=== PATIENT | male | born 1955 | race Caucasian/White ===

== ENCOUNTER 2020-02-25 17:38 | Emergency (ER) | payer MEDICARE ==
[2020-02-25 18:00] VITALS: BP 180/88
[2020-02-25] MEDS ORDERED: Acetaminophen 325 MG Tab PO ONE (18:37)
--- NOTE | 2020-02-25 18:43 | EDM.PDOC ---
<LizzAfia english - Last Filed: 02/25/20 18:36> ED HPI GENERAL MEDICAL PROBLEM - General Chief Complaint: Respiratory Problem Stated Complaint: COUGH,FEVER,SOB, Time Seen by Provider: 02/25/20 18:14 Source of Information: Reports: Patient History Limitations: Reports: Other (Poor historian) - History of Present Illness INITIAL COMMENTS - FREE TEXT/NARRATIVE: Peter is here for complaints of a dry nonproductive cough and intermittent SOB. He stated the symptoms started yesterday after he mowed push mowed his yard yesterday. His cough is worse today. He states he had a fever today. He did not take his temperature but felt like he was burning up. He took 4 Sudafed and some NyQuil, which helped. He had chills, which started at 13:00 today. He has general body aches. He did have a FERNANDO about three hours ago and took 3 ASA which relieved the pain. He states he feels somewhat better since coming to the hospital. He states he does have a sore throat and a FERNANDO with a pain of 5/10. Generalized Pain Score (Numeric/FACES): 4 - Related Data Allergies Allergy/AdvReac Type Severity Reaction Status Date / Time Penicillins Allergy Severe Rash Verified 02/25/20 18:00 amoxicillin AdvReac Severe Tachycardia Verified 02/25/20 18:00 Home Meds: Home Meds Hydrochlorothiazide/Lisinopril [Lisinopril-HCTZ 20-25 MG] 20 - 25 mg PO DAILY [History] Latanoprost [Xalatan] 1 drop EYEBOTH BEDTIME 01/29/15 [History] timoloL maleate [Timoptic 0.5% Ophth Soln] 1 drop EYEBOTH QAM 01/29/15 [History] Clindamycin HCl 450 mg PO TID #90 capsule 02/25/20 [Rx] atorvaSTATin [Lipitor] 20 mg PO BEDTIME 02/25/20 [History] Past Medical History HEENT History: Reports: Cataract, Glaucoma, Impaired Vision Cardiovascular History: Reports: Hypertension Gastrointestinal History: Reports: None Genitourinary History: Reports: None Neurological History: Reports: None Endocrine/Metabolic History: Reports: Obesity/BMI 30+ - Past Surgical History HEENT Surgical History: Reports: Cataract Surgery Cardiovascular Surgical History: Reports: Other (See Below) Social & Family History - Family History Oncologic: Reports: Lung ED ROS GENERAL - Review of Systems Review Of Systems: Comprehensive ROS is negative, except as noted in HPI. ED EXAM, GENERAL - Physical Exam Exam: See Below Exam Limited By: No Limitations General Appearance: Alert, WD/WN, No Apparent Distress Throat/Mouth: Normal Inspection, Normal Lips, Normal Teeth, Normal Gums, Normal Oropharynx, Normal Voice, No Airway Compromise Head: Atraumatic, Normocephalic Neck: Normal Inspection, Supple, Non-Tender, Full Range of Motion Respiratory/Chest: No Respiratory Distress, Lungs Clear, No Accessory Muscle Use , Decreased Breath Sounds Cardiovascular: Normal Peripheral Pulses, Regular Rate, Rhythm. No: No Edema GI/Abdominal: Normal Bowel Sounds, Soft, Non-Tender, No Organomegaly, No Distention, No Abnormal Bruit, No Mass Extremities: Other (left lower leg with erythema, edma, and warmth. He has two scabbed areas. No drainage noted.) Neurological: Alert, Oriented Psychiatric: Normal Affect, Normal Mood Skin Exam: Other (left lower leg with erythema, edma, and warmth. He has two scabbed areas. No drainage noted.) Course - Vital Signs Last Recorded V/S: Last Vital Signs Temp 96.9 F 02/25/20 17:54 Pulse 88 02/25/20 17:54 Resp 20 02/25/20 17:54 BP 180/88 H 02/25/20 17:54 Pulse Ox 95 02/25/20 17:54 - Orders/Labs/Meds Orders: Active Orders 24 hr Category Date Time Status CORONAVIRUS COVID-19 PCR PHL Stat Lab 02/25/20 18:35 Ordered CULTURE STREP A CONFIRMATION [RM] Stat Lab 02/25/20 18:36 Results STREP SCRN A RAPID W CULT CONF [RM] Stat Lab 02/25/20 18:36 Results Meds: Medications Discontinued Medications Generic Name Dose Route Start Last Admin Trade Name Freq PRN Reason Stop Dose Admin Acetaminophen 975 mg 02/25/20 18:37 02/25/20 19:01 Tylenol PO 02/25/20 18:38 975 mg ONETIME ONE Administration - Re-Assessments/Exams Free Text/Narrative Re-Assessment/Exam: 02/25/20 18:57 Peter is a 64 year old male, who presents for for complaints of a dry nonproductive cough and intermittent SOB. He stated the symptoms started yesterday after he mowed push mowed his yard yesterday. His cough is worse today. He states he had a fever today. He did not take his temperature but felt like he was burning up. He took 4 Sudafed and some NyQuil, which helped. He had chills, which started at 13:00 today. He has general body aches. He did have a FERNANDO about three hours ago and took 3 ASA which relieved the pain. He states he feels somewhat better since coming to the hospital. He states he does have a sore throat and a FERNANDO with a pain of 5/10. COVID-19 swab and strep swab to be collected. Tylenol 975 mg will be ordered for his FERNANDO and sore throat. Noted left lower leg with erythema, edema, and warmth during exam. He has two scabbed areas. No drainage noted. 02/25/20 18:59 Departure - Departure Disposition: Home, Self-Care 01 Clinical Impression: Bilateral cellulitis of lower leg - Discharge Information Prescriptions: Clindamycin HCl 450 mg PO TID #90 capsule Referrals: Jim Redding MD [Primary Care Provider] - 1 Week Forms: ED Department Discharge Additional Instructions: Take the clindamycin 3 pills 3 times per day for 10 days. Please return if you are worse. Sepsis Event Note - Evaluation Sepsis Screening Result: No Definite Risk - Focused Exam Vital Signs: Vital Signs Temp Pulse Resp BP Pulse Ox 02/25/20 17:54 96.9 F 88 20 180/88 H 95 Date Exam was Performed: 02/25/20 Time Exam was Performed: 18:36 <Oscar Patterson - Last Filed: 02/25/20 19:27> Course - Re-Assessments/Exams Free Text/Narrative Re-Assessment/Exam: 02/25/20 19:22 I examined the patient myself and I agree with Kayli's assessment and plan. I will get him on some clindamycin for the cellulitis to his legs. Departure - Departure Time of Disposition: 19:25 Condition: Good - Discharge Information *PRESCRIPTION DRUG MONITORING PROGRAM REVIEWED*: Not Applicable *COPY OF PRESCRIPTION DRUG MONITORING REPORT IN PATIENT NOA: Not Applicable Sepsis Event Note - Focused Exam Date Exam was Performed: 02/25/20 Time Exam was Performed: 19:22
--- NOTE | 2020-02-25 19:21 | CR ---
Chest: Portable supine view of the dome of the chest was obtained. Comparison: No prior chest imaging is available. Cardiac silhouette is enlarged. Upper mediastinum is enlarged most likely relating to portable and supine technique. Lungs are clear with no acute parenchymal change being seen. Bony structures are grossly intact. Impression: 1. Cardiomegaly. 2. Nothing acute is definitely appreciated. Diagnostic code #2 This report was dictated in MDT
[2020-02-25 20:50] VITALS: PULSE 82
== END 2020-02-25 20:00 | disposition home or self-care (01) ==
LOC: JD.ED 17:38
DX: L03.116 Cellulitis of left lower limb (principal); L03.115 Cellulitis of right lower limb; I10 Essential (primary) hypertension; E66.9 Obesity, unspecified; Z68.44 Body mass index [BMI] 60.0-69.9, adult; Z88.0 Allergy status to penicillin; Z88.1 Allergy status to other antibiotic agents; Z79.899 Other long term (current) drug therapy
CPT/HCPCS: 71045; 87081; 87430; 99285; A9270; U0002; 99282

== ENCOUNTER 2023-06-17 01:04 | Inpatient (IN) | payer MEDICARE ==
[2023-06-17 02:17] LABS: BASOPHILS ABSOLUTE AUTO 0.1 K/mm3 (0.0-0.2); BASOPHILS PERCENT AUTO 0.7 % (0.0-1.0); EOSINOPHILS ABSOLUTE AUTO 0.3 K/mm3 (0.0-0.4); EOSINOPHILS PERCENT AUTO 3.2 % (0.0-6.0); HEMATOCRIT 40.5 % (42.0-52.0); HEMOGLOBIN 12.6 gm/dl (14.0-18.0); IMMATURE GRAN ABSOLUTE AUTO 0.04 K/mm3 (0.00-0.05); IMMATURE GRAN PERCENT AUTO 0.5 % (0.0-0.4); LYMPHOCYTES ABSOLUTE AUTO 1.3 K/mm3 (1.0-4.8); LYMPHOCYTES PERCENT AUTO 15.2 % (24.0-44.0); MEAN CORPUSCULAR HEMOGLOBIN 26.3 pg (28.0-32.0); MEAN CORPUSCULAR HGB CONC 31.1 g/dl (32.0-36.0); MEAN CORPUSCULAR VOLUME 84.4 fl (83.0-99.0); MEAN PLATELET VOLUME 9.9 fl (9.4-12.4); MONOCYTES ABSOLUTE AUTO 0.6 K/mm3 (0.0-0.8); MONOCYTES PERCENT AUTO 7.3 % (0.0-8.0); NEUTROPHILS ABSOLUTE AUTO 6.5 K/mm3 (1.8-7.7); NEUTROPHILS PERCENT AUTO 73.1 % (41.0-71.0); PLATELET COUNT,PLT 234 K/mm3 (150-400); WHITE BLOOD CELL COUNT,WBC 8.82 K/mm3 (3.9-11.3)
[2023-06-17 02:47] LABS: A/G RATIO 0.8 (1-2); ALBUMIN 3.2 g/dl (3.4-5.0); ANION GAP 11.9 (5-15); BILIRUBIN TOTAL 0.4 mg/dL (0.2-1.0); BUN/CREATININE RATIO 25.8 (14-18); CALCIUM 8.6 mg/dL (8.5-10.1); CREATININE 1.2 mg/dL (0.7-1.3); EST CRCL DRUG DOSING (CG) 51.69 mL/min; POTASSIUM,K 3.9 mEq/L (3.5-5.1); PROTEIN TOTAL,TP 7.1 g/dl (6.4-8.2)
[2023-06-17] MEDS ORDERED: Acetaminophen 325 MG Tab PO ONE (03:11)
[2023-06-17] MEDS ORDERED: Ibuprofen 600 MG Tab PO ONE (03:11)
[2023-06-17] MEDS ORDERED: oxyCODONE 5 MG Tab PO PRN (14:52)
[2023-06-17] MEDS ORDERED: Furosemide 40 MG/4 ML VIAL IVPUSH SCH (15:00)
[2023-06-17] MEDS ORDERED: cefTRIAXone 1 GM in Sodium Chloride 0.9% 100 ML IV SCH (15:00)
[2023-06-17] MEDS: Enoxaparin 40 MG/0.4 ML Syringe SUBCUT SCH (18:54)
[2023-06-17] MEDS: Furosemide 40 MG/4 ML VIAL IVPUSH SCH (18:57)
[2023-06-17] MEDS: Insulin Lispro 100 Unit/ML 3 ML KwikPen SUBCUT SCH ×2 (19:02→21:09)
[2023-06-17] MEDS ORDERED: BIMATOPROST 0.01% EYEBOTH SCH (21:00)
[2023-06-17] MEDS ORDERED: Latanoprost 0.005% Ophth Soln 2.5 ML Bottle EYEBOTH SCH ×2 (21:00)
[2023-06-17] MEDS ORDERED: Non-Formulary Medication 1 Each (Atorvastatin 10 MG Tablet) PO SCH (21:00)
[2023-06-17] MEDS: metFORMIN 500 MG Tab PO SCH (21:53)
[2023-06-17] MEDS: Rosuvastatin 10 MG Tab PO SCH (21:53)
[2023-06-17] MEDS: Acetaminophen 325 MG Tab PO PRN (21:53)
[2023-06-17] MEDS: Latanoprost 0.005% Ophth Soln 2.5 ML Bottle EYEBOTH SCH (21:55)
[2023-06-18] MEDS: oxyCODONE 5 MG Tab PO PRN ×2 (01:14→23:16)
[2023-06-18] MEDS: Enoxaparin 40 MG/0.4 ML Syringe SUBCUT SCH ×2 (04:07→15:29)
[2023-06-18 05:34] LABS: BASOPHILS PERCENT AUTO 0.5 % (0.0-1.0); EOSINOPHILS ABSOLUTE AUTO 0.2 K/mm3 (0.0-0.4); EOSINOPHILS PERCENT AUTO 2.6 % (0.0-6.0); HEMATOCRIT 40.5 % (42.0-52.0); HEMOGLOBIN 12.6 gm/dl (14.0-18.0); IMMATURE GRAN ABSOLUTE AUTO 0.01 K/mm3 (0.00-0.05); IMMATURE GRAN PERCENT AUTO 0.1 % (0.0-0.4); LYMPHOCYTES ABSOLUTE AUTO 1.5 K/mm3 (1.0-4.8); LYMPHOCYTES PERCENT AUTO 18.9 % (24.0-44.0); MEAN CORPUSCULAR HEMOGLOBIN 26.6 pg (28.0-32.0); MEAN CORPUSCULAR HGB CONC 31.1 g/dl (32.0-36.0); MEAN CORPUSCULAR VOLUME 85.4 fl (83.0-99.0); MEAN PLATELET VOLUME 10.1 fl (9.4-12.4); MONOCYTES ABSOLUTE AUTO 0.5 K/mm3 (0.0-0.8); MONOCYTES PERCENT AUTO 6.8 % (0.0-8.0); NEUTROPHILS ABSOLUTE AUTO 5.6 K/mm3 (1.8-7.7); NEUTROPHILS PERCENT AUTO 71.1 % (41.0-71.0); PLATELET COUNT,PLT 227 K/mm3 (150-400); RED BLOOD CELL COUNT 4.74 M/mm3 (4.52-5.90); WHITE BLOOD CELL COUNT,WBC 7.83 K/mm3 (3.9-11.3)
[2023-06-18] MEDS: Furosemide 40 MG/4 ML VIAL IVPUSH SCH ×2 (05:37→15:29)
[2023-06-18 05:42] LABS: A/G RATIO 0.7 (1-2); ALBUMIN 2.9 g/dl (3.4-5.0); BILIRUBIN TOTAL 0.4 mg/dL (0.2-1.0); CALCIUM 8.7 mg/dL (8.5-10.1); CREATININE 0.9 mg/dL (0.7-1.3); EST CRCL DRUG DOSING (CG) 69.27 mL/min; MAGNESIUM 1.9 mg/dL (1.8-2.4); PROTEIN TOTAL,TP 6.8 g/dl (6.4-8.2)
[2023-06-18] MEDS: Insulin Lispro 100 Unit/ML 3 ML KwikPen SUBCUT SCH ×4 (07:28→23:08)
[2023-06-18] MEDS ORDERED: Hydrochlorothiazide 25 MG Tab PO SCH (09:00)
[2023-06-18] MEDS: Acetaminophen 325 MG Tab PO PRN ×2 (09:53→20:25)
[2023-06-18] MEDS: metFORMIN 500 MG Tab PO SCH ×2 (09:53→20:21)
[2023-06-18] MEDS: Lisinopril 20 MG Tab PO SCH (09:53)
[2023-06-18] MEDS ORDERED: Bisacodyl 5 MG Tab PO PRN (18:10)
[2023-06-18] MEDS: Docusate Sodium 100 MG Cap PO SCH (20:21)
[2023-06-18] MEDS: Latanoprost 0.005% Ophth Soln 2.5 ML Bottle EYEBOTH SCH (20:21)
[2023-06-18] MEDS: Rosuvastatin 10 MG Tab PO SCH (20:21)
[2023-06-18] MEDS: cefTRIAXone 1 GM in Sodium Chloride 0.9% 100 ML IV SCH (20:22)
[2023-06-18] MEDS: Polyethylene Glycol 3350 Powder 17 GM Packet PO PRN (20:32)
[2023-06-19] MEDS: Docusate Sodium 100 MG Cap PO SCH ×3 (00:16→22:19)
[2023-06-19] MEDS: Enoxaparin 40 MG/0.4 ML Syringe SUBCUT SCH ×2 (03:12→15:35)
[2023-06-19] MEDS: Insulin Lispro 100 Unit/ML 3 ML KwikPen SUBCUT SCH ×4 (07:30→22:21)
[2023-06-19] MEDS: Acetaminophen 325 MG Tab PO PRN ×2 (07:53→23:02)
[2023-06-19] MEDS: Furosemide 40 MG/4 ML VIAL IVPUSH SCH ×2 (07:55→15:35)
[2023-06-19] MEDS: Lisinopril 20 MG Tab PO SCH (10:10)
[2023-06-19] MEDS: metFORMIN 500 MG Tab PO SCH ×2 (10:10→22:19)
[2023-06-19] MEDS ORDERED: Magnesium Hydroxide 400 MG/5 ML Susp 30 ML Cup PO ONE (18:11)
[2023-06-19] MEDS: cefTRIAXone 1 GM in Sodium Chloride 0.9% 100 ML IV SCH (22:18)
[2023-06-19] MEDS: Latanoprost 0.005% Ophth Soln 2.5 ML Bottle EYEBOTH SCH (22:18)
[2023-06-19] MEDS: Rosuvastatin 10 MG Tab PO SCH (22:19)
[2023-06-20] MEDS: oxyCODONE 5 MG Tab PO PRN ×3 (00:52→19:17)
[2023-06-20] MEDS: Enoxaparin 40 MG/0.4 ML Syringe SUBCUT SCH ×2 (03:57→14:25)
[2023-06-20 05:37] LABS: BASOPHILS PERCENT AUTO 0.5 % (0.0-1.0); EOSINOPHILS ABSOLUTE AUTO 0.3 K/mm3 (0.0-0.4); EOSINOPHILS PERCENT AUTO 3.6 % (0.0-6.0); HEMATOCRIT 41.5 % (42.0-52.0); HEMOGLOBIN 12.7 gm/dl (14.0-18.0); IMMATURE GRAN ABSOLUTE AUTO 0.02 K/mm3 (0.00-0.05); IMMATURE GRAN PERCENT AUTO 0.2 % (0.0-0.4); LYMPHOCYTES ABSOLUTE AUTO 1.5 K/mm3 (1.0-4.8); LYMPHOCYTES PERCENT AUTO 17.9 % (24.0-44.0); MEAN CORPUSCULAR HEMOGLOBIN 26.2 pg (28.0-32.0); MEAN CORPUSCULAR HGB CONC 30.6 g/dl (32.0-36.0); MEAN CORPUSCULAR VOLUME 85.6 fl (83.0-99.0); MEAN PLATELET VOLUME 10.3 fl (9.4-12.4); MONOCYTES ABSOLUTE AUTO 0.8 K/mm3 (0.0-0.8); MONOCYTES PERCENT AUTO 9.2 % (0.0-8.0); NEUTROPHILS ABSOLUTE AUTO 5.9 K/mm3 (1.8-7.7); NEUTROPHILS PERCENT AUTO 68.6 % (41.0-71.0); PLATELET COUNT,PLT 224 K/mm3 (150-400); RED BLOOD CELL COUNT 4.85 M/mm3 (4.52-5.90); WHITE BLOOD CELL COUNT,WBC 8.59 K/mm3 (3.9-11.3)
[2023-06-20 06:00] LABS: A/G RATIO 0.7 (1-2); ALBUMIN 2.8 g/dl (3.4-5.0); BILIRUBIN TOTAL 0.3 mg/dL (0.2-1.0); C-REACTIVE PROTEIN 2.2 mg/dL (<1.0); CALCIUM 8.7 mg/dL (8.5-10.1); EST CRCL DRUG DOSING (CG) 62.03 mL/min; PROTEIN TOTAL,TP 6.9 g/dl (6.4-8.2)
[2023-06-20] MEDS: Lisinopril 20 MG Tab PO SCH (08:13)
[2023-06-20] MEDS: metFORMIN 500 MG Tab PO SCH (08:13)
[2023-06-20] MEDS: Insulin Lispro 100 Unit/ML 3 ML KwikPen SUBCUT SCH ×4 (08:14→21:56)
[2023-06-20] MEDS: Furosemide 40 MG/4 ML VIAL IVPUSH SCH ×2 (08:14→14:24)
[2023-06-20] MEDS: Docusate Sodium 100 MG Cap PO SCH ×2 (08:14→20:26)
[2023-06-20 10:28] LABS: HEMOGLOBIN A1C 6.5 %
[2023-06-20] MEDS: Polyethylene Glycol 3350 Powder 17 GM Packet PO PRN (10:41)
[2023-06-20] MEDS: amLODIPine 5 MG Tab PO SCH (12:19)
[2023-06-20] MEDS: Acetaminophen 325 MG Tab PO PRN (12:23)
[2023-06-20] MEDS ORDERED: Furosemide 40 MG/4 ML VIAL IVPUSH SCH (14:00)
[2023-06-20] MEDS: Nystatin Topical Powder 15 GM Bottle TOP PRN (14:11)
[2023-06-20] MEDS: Doxycycline 100 MG in Sodium Chloride 0.9% 100 ML IV SCH (20:24)
[2023-06-20] MEDS: Rosuvastatin 10 MG Tab PO SCH (20:26)
[2023-06-20] MEDS: Latanoprost 0.005% Ophth Soln 2.5 ML Bottle EYEBOTH SCH (20:26)
[2023-06-20] MEDS: Dorzolamide/Timolol 2%-0.5% Ophth Soln 10 ML Bottle EYEBOTH SCH (20:26)
[2023-06-20] MEDS ORDERED: Non-Formulary Medication 1 Each (Bimatoprost 2.5 ML Bottle) EYEBOTH SCH (21:00)
[2023-06-21] MEDS: Acetaminophen 325 MG Tab PO PRN ×3 (00:41→17:36)
[2023-06-21] MEDS: Enoxaparin 40 MG/0.4 ML Syringe SUBCUT SCH ×2 (03:09→14:18)
[2023-06-21] MEDS: Furosemide 40 MG/4 ML VIAL IVPUSH SCH ×2 (05:25→14:16)
[2023-06-21 07:02] LABS: BUN/CREATININE RATIO 32.2 (14-18); C-REACTIVE PROTEIN 2.9 mg/dL (<1.0); CALCIUM 9.2 mg/dL (8.5-10.1); CREATININE 0.9 mg/dL (0.7-1.3); EST CRCL DRUG DOSING (CG) 68.92 mL/min; MAGNESIUM 1.8 mg/dL (1.8-2.4)
[2023-06-21] MEDS: Insulin Lispro 100 Unit/ML 3 ML KwikPen SUBCUT SCH ×4 (07:46→21:45)
[2023-06-21 08:04] LABS: HEMOGLOBIN 12.4 gm/dl (14.0-18.0); RED BLOOD CELL COUNT 4.66 M/mm3 (4.52-5.90)
[2023-06-21 08:05] LABS: BASOPHILS PERCENT AUTO 0.5 % (0.0-1.0); EOSINOPHILS ABSOLUTE AUTO 0.4 K/mm3 (0.0-0.4); EOSINOPHILS PERCENT AUTO 4.7 % (0.0-6.0); HEMATOCRIT 39.1 % (42.0-52.0); IMMATURE GRAN ABSOLUTE AUTO 0.02 K/mm3 (0.00-0.05); IMMATURE GRAN PERCENT AUTO 0.3 % (0.0-0.4); LYMPHOCYTES ABSOLUTE AUTO 1.2 K/mm3 (1.0-4.8); LYMPHOCYTES PERCENT AUTO 16.3 % (24.0-44.0); MEAN CORPUSCULAR HEMOGLOBIN 26.6 pg (28.0-32.0); MEAN CORPUSCULAR HGB CONC 31.7 g/dl (32.0-36.0); MEAN CORPUSCULAR VOLUME 83.9 fl (83.0-99.0); MONOCYTES ABSOLUTE AUTO 0.6 K/mm3 (0.0-0.8); MONOCYTES PERCENT AUTO 7.9 % (0.0-8.0); NEUTROPHILS ABSOLUTE AUTO 5.3 K/mm3 (1.8-7.7); NEUTROPHILS PERCENT AUTO 70.3 % (41.0-71.0); PLATELET COUNT,PLT 223 K/mm3 (150-400)
[2023-06-21] MEDS: Doxycycline 100 MG in Sodium Chloride 0.9% 100 ML IV SCH ×2 (08:11→21:33)
[2023-06-21] MEDS: Dorzolamide/Timolol 2%-0.5% Ophth Soln 10 ML Bottle EYEBOTH SCH ×2 (08:12→21:34)
[2023-06-21] MEDS: Docusate Sodium 100 MG Cap PO SCH ×2 (08:12→21:28)
[2023-06-21] MEDS: amLODIPine 5 MG Tab PO SCH (08:12)
[2023-06-21] MEDS: oxyCODONE 5 MG Tab PO PRN ×2 (08:20→15:27)
[2023-06-21] MEDS: Nystatin Topical Powder 15 GM Bottle TOP PRN (08:26)
[2023-06-21] MEDS ORDERED: Benzocaine/Cetylpyridinium/Menthol Lozenge MUCMEM PRN (09:13)
[2023-06-21] MEDS ORDERED: Acetaminophen/Butalbital/Caffeine 325-50-40 MG Tab PO ONE (09:30)
[2023-06-21] MEDS ORDERED: Diltiazem 25 MG/5 ML SDV IVPUSH ONE ×2 (15:00→16:15)
[2023-06-21] MEDS: Metoprolol Tartrate 25 MG Tab PO SCH ×2 (15:29→21:28)
[2023-06-21] MEDS ORDERED: Diltiazem 125 MG in Sodium Chloride 0.9% 100 ML IV SCH (16:00)
[2023-06-21] MEDS ORDERED: Magnesium Sulfate/Water 2 GM in Premix Bag 1 BAG IV ONE (16:30)
[2023-06-21] MEDS: Apixaban 5 MG Tab PO SCH (21:28)
[2023-06-21] MEDS: Rosuvastatin 10 MG Tab PO SCH (21:33)
[2023-06-21] MEDS: Latanoprost 0.005% Ophth Soln 2.5 ML Bottle EYEBOTH SCH (21:33)
[2023-06-22] MEDS: Metoprolol Tartrate 25 MG Tab PO SCH (03:29)
[2023-06-22 05:30] LABS: BASOPHILS ABSOLUTE AUTO 0.1 K/mm3 (0.0-0.2); BASOPHILS PERCENT AUTO 0.9 % (0.0-1.0); EOSINOPHILS ABSOLUTE AUTO 0.4 K/mm3 (0.0-0.4); EOSINOPHILS PERCENT AUTO 5.5 % (0.0-6.0); HEMATOCRIT 40.8 % (42.0-52.0); HEMOGLOBIN 13.2 gm/dl (14.0-18.0); IMMATURE GRAN ABSOLUTE AUTO 0.02 K/mm3 (0.00-0.05); IMMATURE GRAN PERCENT AUTO 0.3 % (0.0-0.4); LYMPHOCYTES ABSOLUTE AUTO 1.5 K/mm3 (1.0-4.8); LYMPHOCYTES PERCENT AUTO 21.6 % (24.0-44.0); MEAN CORPUSCULAR HEMOGLOBIN 26.8 pg (28.0-32.0); MEAN CORPUSCULAR HGB CONC 32.4 g/dl (32.0-36.0); MEAN CORPUSCULAR VOLUME 82.9 fl (83.0-99.0); MEAN PLATELET VOLUME 10.4 fl (9.4-12.4); MONOCYTES ABSOLUTE AUTO 0.5 K/mm3 (0.0-0.8); MONOCYTES PERCENT AUTO 7.3 % (0.0-8.0); NEUTROPHILS ABSOLUTE AUTO 4.5 K/mm3 (1.8-7.7); NEUTROPHILS PERCENT AUTO 64.4 % (41.0-71.0); PLATELET COUNT,PLT 227 K/mm3 (150-400); RED BLOOD CELL COUNT 4.92 M/mm3 (4.52-5.90); WHITE BLOOD CELL COUNT,WBC 7.03 K/mm3 (3.9-11.3)
[2023-06-22 05:42] LABS: CALCIUM 9.2 mg/dL (8.5-10.1); EST CRCL DRUG DOSING (CG) 62.03 mL/min; MAGNESIUM 1.9 mg/dL (1.8-2.4)
[2023-06-22] MEDS: Furosemide 40 MG/4 ML VIAL IVPUSH SCH (05:55)
[2023-06-22] MEDS: Insulin Lispro 100 Unit/ML 3 ML KwikPen SUBCUT SCH ×4 (07:50→20:38)
[2023-06-22] MEDS ORDERED: Metoprolol Tartrate 50 MG Tab PO SCH ×2 (08:00→14:00)
[2023-06-22] MEDS: Doxycycline 100 MG in Sodium Chloride 0.9% 100 ML IV SCH (08:02)
[2023-06-22] MEDS: Docusate Sodium 100 MG Cap PO SCH ×2 (08:05→20:37)
[2023-06-22] MEDS: Apixaban 5 MG Tab PO SCH ×2 (08:05→20:37)
[2023-06-22] MEDS: amLODIPine 5 MG Tab PO SCH (08:06)
[2023-06-22] MEDS: Polyethylene Glycol 3350 Powder 17 GM Packet PO SCH (08:07)
[2023-06-22] MEDS: Dorzolamide/Timolol 2%-0.5% Ophth Soln 10 ML Bottle EYEBOTH SCH ×2 (08:07→20:37)
[2023-06-22] MEDS ORDERED: Metoprolol Tartrate 25 MG Tab PO ONE (09:00)
[2023-06-22] MEDS: Nystatin Topical Powder 15 GM Bottle TOP PRN (12:18)
[2023-06-22] MEDS: Acetaminophen 325 MG Tab PO PRN (12:53)
[2023-06-22] MEDS: oxyCODONE 5 MG Tab PO PRN (13:43)
[2023-06-22] MEDS ORDERED: Metoprolol Tartrate 100 MG Tab PO SCH (14:00)
[2023-06-22] MEDS: Metoprolol Tartrate 100 MG Tab PO SCH ×2 (18:05→23:29)
[2023-06-22] MEDS: Latanoprost 0.005% Ophth Soln 2.5 ML Bottle EYEBOTH SCH (20:37)
[2023-06-22] MEDS: Doxycycline Monohydrate 100 MG Cap PO SCH (20:37)
[2023-06-22] MEDS: Rosuvastatin 10 MG Tab PO SCH (20:37)
[2023-06-23] MEDS: Acetaminophen 325 MG Tab PO PRN ×3 (01:51→21:09)
[2023-06-23] MEDS: Metoprolol Tartrate 100 MG Tab PO SCH ×4 (05:16→23:36)
[2023-06-23 05:36] LABS: BASOPHILS ABSOLUTE AUTO 0.1 K/mm3 (0.0-0.2); BASOPHILS PERCENT AUTO 0.7 % (0.0-1.0); EOSINOPHILS ABSOLUTE AUTO 0.3 K/mm3 (0.0-0.4); EOSINOPHILS PERCENT AUTO 3.3 % (0.0-6.0); HEMATOCRIT 42.5 % (42.0-52.0); HEMOGLOBIN 13.6 gm/dl (14.0-18.0); IMMATURE GRAN ABSOLUTE AUTO 0.03 K/mm3 (0.00-0.05); IMMATURE GRAN PERCENT AUTO 0.4 % (0.0-0.4); LYMPHOCYTES ABSOLUTE AUTO 1.6 K/mm3 (1.0-4.8); LYMPHOCYTES PERCENT AUTO 21.4 % (24.0-44.0); MEAN CORPUSCULAR HEMOGLOBIN 26.8 pg (28.0-32.0); MEAN CORPUSCULAR VOLUME 83.8 fl (83.0-99.0); MEAN PLATELET VOLUME 10.6 fl (9.4-12.4); MONOCYTES ABSOLUTE AUTO 0.6 K/mm3 (0.0-0.8); MONOCYTES PERCENT AUTO 7.4 % (0.0-8.0); NEUTROPHILS ABSOLUTE AUTO 5.1 K/mm3 (1.8-7.7); NEUTROPHILS PERCENT AUTO 66.8 % (41.0-71.0); PLATELET COUNT,PLT 246 K/mm3 (150-400); RED BLOOD CELL COUNT 5.07 M/mm3 (4.52-5.90); WHITE BLOOD CELL COUNT,WBC 7.66 K/mm3 (3.9-11.3)
[2023-06-23 05:37] LABS: ANION GAP 9.8 (5-15); BUN/CREATININE RATIO 32.7 (14-18); CALCIUM 9.1 mg/dL (8.5-10.1); CREATININE 1.1 mg/dL (0.7-1.3); EST CRCL DRUG DOSING (CG) 56.39 mL/min; POTASSIUM,K 3.8 mEq/L (3.5-5.1)
[2023-06-23] MEDS: Insulin Lispro 100 Unit/ML 3 ML KwikPen SUBCUT SCH ×4 (07:16→21:11)
[2023-06-23] MEDS: Docusate Sodium 100 MG Cap PO SCH ×2 (08:46→21:09)
[2023-06-23] MEDS: Polyethylene Glycol 3350 Powder 17 GM Packet PO SCH (08:47)
[2023-06-23] MEDS: Furosemide 80 MG Tab PO SCH (08:47)
[2023-06-23] MEDS: amLODIPine 5 MG Tab PO SCH (08:47)
[2023-06-23] MEDS: Apixaban 5 MG Tab PO SCH ×2 (08:47→21:09)
[2023-06-23] MEDS: Doxycycline Monohydrate 100 MG Cap PO SCH ×2 (08:47→21:09)
[2023-06-23] MEDS: Dorzolamide/Timolol 2%-0.5% Ophth Soln 10 ML Bottle EYEBOTH SCH ×2 (09:00→21:10)
[2023-06-23] MEDS ORDERED: Diltiazem IR 30 MG Tab PO SCH (09:00)
[2023-06-23] MEDS ORDERED: Diltiazem IR 60 MG Tab PO SCH ×2 (15:00→21:00)
[2023-06-23] MEDS: Rosuvastatin 10 MG Tab PO SCH (21:09)
[2023-06-23] MEDS: Diltiazem IR 30 MG Tab PO SCH ×2 (21:10→23:36)
[2023-06-23] MEDS: Latanoprost 0.005% Ophth Soln 2.5 ML Bottle EYEBOTH SCH (21:10)
[2023-06-24] MEDS: Diltiazem IR 30 MG Tab PO SCH ×3 (06:35→17:11)
[2023-06-24] MEDS: Insulin Lispro 100 Unit/ML 3 ML KwikPen SUBCUT SCH ×4 (06:35→20:25)
[2023-06-24] MEDS: amLODIPine 5 MG Tab PO SCH (08:11)
[2023-06-24] MEDS: Doxycycline Monohydrate 100 MG Cap PO SCH ×2 (08:11→20:13)
[2023-06-24] MEDS: Docusate Sodium 100 MG Cap PO SCH (08:11)
[2023-06-24] MEDS: Apixaban 5 MG Tab PO SCH ×2 (08:12→20:13)
[2023-06-24] MEDS: Metoprolol Succinate 50 MG Tab.ER PO SCH (08:12)
[2023-06-24] MEDS: Furosemide 80 MG Tab PO SCH (08:12)
[2023-06-24] MEDS: Polyethylene Glycol 3350 Powder 17 GM Packet PO SCH (08:12)
[2023-06-24] MEDS: Dorzolamide/Timolol 2%-0.5% Ophth Soln 10 ML Bottle EYEBOTH SCH ×2 (08:12→20:17)
[2023-06-24] MEDS: Acetaminophen 325 MG Tab PO PRN ×2 (12:43→20:13)
[2023-06-24] MEDS: Latanoprost 0.005% Ophth Soln 2.5 ML Bottle EYEBOTH SCH (20:17)
[2023-06-24] MEDS: Rosuvastatin 10 MG Tab PO SCH (20:18)
[2023-06-25] MEDS: Docusate Sodium 100 MG Cap PO SCH ×3 (00:07→20:02)
[2023-06-25] MEDS: Diltiazem IR 30 MG Tab PO SCH ×5 (00:13→23:06)
[2023-06-25] MEDS: Acetaminophen 325 MG Tab PO PRN ×2 (05:10→14:50)
[2023-06-25] MEDS: Insulin Lispro 100 Unit/ML 3 ML KwikPen SUBCUT SCH ×4 (07:56→20:01)
[2023-06-25] MEDS: Doxycycline Monohydrate 100 MG Cap PO SCH ×2 (08:08→20:02)
[2023-06-25] MEDS: Apixaban 5 MG Tab PO SCH ×2 (08:08→20:02)
[2023-06-25] MEDS: amLODIPine 5 MG Tab PO SCH (08:08)
[2023-06-25] MEDS: Furosemide 80 MG Tab PO SCH (08:08)
[2023-06-25] MEDS: Polyethylene Glycol 3350 Powder 17 GM Packet PO SCH (08:09)
[2023-06-25] MEDS: Metoprolol Succinate 50 MG Tab.ER PO SCH (08:09)
[2023-06-25] MEDS: Dorzolamide/Timolol 2%-0.5% Ophth Soln 10 ML Bottle EYEBOTH SCH ×2 (08:09→20:03)
[2023-06-25] MEDS: Rosuvastatin 10 MG Tab PO SCH (20:02)
[2023-06-25] MEDS: Latanoprost 0.005% Ophth Soln 2.5 ML Bottle EYEBOTH SCH (20:05)
[2023-06-25] MEDS: oxyCODONE 5 MG Tab PO PRN ×2 (20:07→23:09)
[2023-06-25] MEDS: Nystatin Topical Powder 15 GM Bottle TOP PRN (22:20)
[2023-06-26] MEDS: Diltiazem IR 30 MG Tab PO SCH ×4 (06:30→23:25)
[2023-06-26] MEDS: Insulin Lispro 100 Unit/ML 3 ML KwikPen SUBCUT SCH ×4 (06:33→21:06)
[2023-06-26] MEDS: Acetaminophen 325 MG Tab PO PRN ×2 (06:37→21:10)
[2023-06-26] MEDS ORDERED: Ibuprofen 200 MG Tab PO ONE (07:43)
[2023-06-26] MEDS: Dorzolamide/Timolol 2%-0.5% Ophth Soln 10 ML Bottle EYEBOTH SCH ×2 (08:00→21:07)
[2023-06-26] MEDS: Metoprolol Succinate 50 MG Tab.ER PO SCH (08:01)
[2023-06-26] MEDS: Apixaban 5 MG Tab PO SCH ×2 (08:01→21:06)
[2023-06-26] MEDS: Doxycycline Monohydrate 100 MG Cap PO SCH ×2 (08:01→21:07)
[2023-06-26] MEDS: amLODIPine 5 MG Tab PO SCH (08:01)
[2023-06-26] MEDS: Docusate Sodium 100 MG Cap PO SCH ×2 (08:01→21:07)
[2023-06-26] MEDS: Furosemide 80 MG Tab PO SCH (08:01)
[2023-06-26] MEDS: Polyethylene Glycol 3350 Powder 17 GM Packet PO SCH (08:02)
[2023-06-26] MEDS: Latanoprost 0.005% Ophth Soln 2.5 ML Bottle EYEBOTH SCH (21:07)
[2023-06-26] MEDS: Rosuvastatin 10 MG Tab PO SCH (21:07)
[2023-06-27] MEDS: Acetaminophen 325 MG Tab PO PRN ×2 (03:25→14:56)
[2023-06-27] MEDS: Diltiazem IR 30 MG Tab PO SCH (05:21)
[2023-06-27 05:39] LABS: BASOPHILS ABSOLUTE AUTO 0.1 K/mm3 (0.0-0.2); BASOPHILS PERCENT AUTO 0.9 % (0.0-1.0); EOSINOPHILS ABSOLUTE AUTO 0.3 K/mm3 (0.0-0.4); EOSINOPHILS PERCENT AUTO 3.3 % (0.0-6.0); HEMATOCRIT 40.4 % (42.0-52.0); HEMOGLOBIN 12.8 gm/dl (14.0-18.0); IMMATURE GRAN ABSOLUTE AUTO 0.04 K/mm3 (0.00-0.05); IMMATURE GRAN PERCENT AUTO 0.5 % (0.0-0.4); LYMPHOCYTES PERCENT AUTO 23.6 % (24.0-44.0); MEAN CORPUSCULAR HEMOGLOBIN 26.3 pg (28.0-32.0); MEAN CORPUSCULAR HGB CONC 31.7 g/dl (32.0-36.0); MEAN PLATELET VOLUME 11.2 fl (9.4-12.4); MONOCYTES ABSOLUTE AUTO 0.7 K/mm3 (0.0-0.8); NEUTROPHILS ABSOLUTE AUTO 5.4 K/mm3 (1.8-7.7); NEUTROPHILS PERCENT AUTO 63.7 % (41.0-71.0); PLATELET COUNT,PLT 232 K/mm3 (150-400); RED BLOOD CELL COUNT 4.87 M/mm3 (4.52-5.90); WHITE BLOOD CELL COUNT,WBC 8.48 K/mm3 (3.9-11.3)
[2023-06-27 05:44] LABS: ANION GAP 12.5 (5-15); BUN/CREATININE RATIO 27.3 (14-18); CALCIUM 9.1 mg/dL (8.5-10.1); CREATININE 1.1 mg/dL (0.7-1.3); EST CRCL DRUG DOSING (CG) 56.39 mL/min; POTASSIUM,K 3.5 mEq/L (3.5-5.1)
[2023-06-27] MEDS: Insulin Lispro 100 Unit/ML 3 ML KwikPen SUBCUT SCH ×4 (07:08→21:25)
[2023-06-27] MEDS: Apixaban 5 MG Tab PO SCH ×2 (08:11→21:22)
[2023-06-27] MEDS: Dorzolamide/Timolol 2%-0.5% Ophth Soln 10 ML Bottle EYEBOTH SCH ×2 (08:11→21:25)
[2023-06-27] MEDS: amLODIPine 5 MG Tab PO SCH (08:12)
[2023-06-27] MEDS: Furosemide 80 MG Tab PO SCH (08:12)
[2023-06-27] MEDS: Docusate Sodium 100 MG Cap PO SCH ×2 (08:12→21:26)
[2023-06-27] MEDS: Polyethylene Glycol 3350 Powder 17 GM Packet PO SCH (08:12)
[2023-06-27] MEDS: Metoprolol Succinate 50 MG Tab.ER PO SCH (08:12)
[2023-06-27] MEDS ORDERED: Diltiazem 120 MG Cap.CD PO SCH (09:00)
[2023-06-27] MEDS: Diltiazem IR 60 MG Tab PO SCH ×2 (11:19→17:14)
[2023-06-27] MEDS: Rosuvastatin 10 MG Tab PO SCH (21:21)
[2023-06-27] MEDS: Diltiazem 120 MG Cap.CD PO SCH (21:22)
[2023-06-27] MEDS: Latanoprost 0.005% Ophth Soln 2.5 ML Bottle EYEBOTH SCH (21:24)
[2023-06-27] MEDS: Melatonin 3 MG Tab PO PRN (22:04)
[2023-06-28] MEDS: Acetaminophen 325 MG Tab PO PRN ×2 (07:41→16:48)
[2023-06-28] MEDS: Insulin Lispro 100 Unit/ML 3 ML KwikPen SUBCUT SCH ×4 (07:44→22:18)
[2023-06-28] MEDS: Apixaban 5 MG Tab PO SCH ×2 (08:06→22:10)
[2023-06-28] MEDS: Metoprolol Succinate 50 MG Tab.ER PO SCH (08:07)
[2023-06-28] MEDS: Diltiazem 120 MG Cap.CD PO SCH ×2 (08:07→22:10)
[2023-06-28] MEDS: amLODIPine 5 MG Tab PO SCH (08:07)
[2023-06-28] MEDS: Dorzolamide/Timolol 2%-0.5% Ophth Soln 10 ML Bottle EYEBOTH SCH ×2 (08:08→22:12)
[2023-06-28] MEDS: Docusate Sodium 100 MG Cap PO SCH ×2 (08:08→22:19)
[2023-06-28] MEDS: Polyethylene Glycol 3350 Powder 17 GM Packet PO SCH (08:08)
[2023-06-28] MEDS: Furosemide 80 MG Tab PO SCH (08:08)
[2023-06-28] MEDS: Latanoprost 0.005% Ophth Soln 2.5 ML Bottle EYEBOTH SCH (22:09)
[2023-06-28] MEDS: Melatonin 3 MG Tab PO PRN (22:10)
[2023-06-28] MEDS: Rosuvastatin 10 MG Tab PO SCH (22:19)
[2023-06-29] MEDS: Insulin Lispro 100 Unit/ML 3 ML KwikPen SUBCUT SCH ×4 (06:51→20:44)
[2023-06-29] MEDS: Dorzolamide/Timolol 2%-0.5% Ophth Soln 10 ML Bottle EYEBOTH SCH ×2 (08:37→20:38)
[2023-06-29] MEDS: Polyethylene Glycol 3350 Powder 17 GM Packet PO SCH (08:37)
[2023-06-29] MEDS: Metoprolol Succinate 50 MG Tab.ER PO SCH (08:38)
[2023-06-29] MEDS: Acetaminophen 325 MG Tab PO PRN (08:38)
[2023-06-29] MEDS: Apixaban 5 MG Tab PO SCH ×2 (08:38→20:35)
[2023-06-29] MEDS: Furosemide 80 MG Tab PO SCH (08:39)
[2023-06-29] MEDS: amLODIPine 5 MG Tab PO SCH (08:39)
[2023-06-29] MEDS: Docusate Sodium 100 MG Cap PO SCH ×2 (08:39→20:36)
[2023-06-29] MEDS: Diltiazem 120 MG Cap.CD PO SCH ×2 (08:39→20:35)
[2023-06-29] MEDS: Rosuvastatin 10 MG Tab PO SCH (20:37)
[2023-06-29] MEDS: Latanoprost 0.005% Ophth Soln 2.5 ML Bottle EYEBOTH SCH (20:39)
[2023-06-29] MEDS: Melatonin 3 MG Tab PO PRN (20:43)
[2023-06-30] MEDS: Acetaminophen 325 MG Tab PO PRN ×2 (02:37→20:34)
[2023-06-30] MEDS: Insulin Lispro 100 Unit/ML 3 ML KwikPen SUBCUT SCH ×4 (07:11→20:41)
[2023-06-30] MEDS: Metoprolol Succinate 50 MG Tab.ER PO SCH (10:25)
[2023-06-30] MEDS: Furosemide 80 MG Tab PO SCH (10:26)
[2023-06-30] MEDS: Docusate Sodium 100 MG Cap PO SCH ×2 (10:26→20:33)
[2023-06-30] MEDS: Apixaban 5 MG Tab PO SCH ×2 (10:26→20:34)
[2023-06-30] MEDS: Diltiazem 120 MG Cap.CD PO SCH ×2 (10:26→20:33)
[2023-06-30] MEDS: amLODIPine 5 MG Tab PO SCH (10:27)
[2023-06-30] MEDS: Polyethylene Glycol 3350 Powder 17 GM Packet PO SCH (10:27)
[2023-06-30] MEDS: Dorzolamide/Timolol 2%-0.5% Ophth Soln 10 ML Bottle EYEBOTH SCH ×2 (10:31→20:36)
[2023-06-30] MEDS: Nystatin Topical Powder 15 GM Bottle TOP PRN (19:37)
[2023-06-30] MEDS: traZODone 50 MG Tab PO PRN (20:33)
[2023-06-30] MEDS: Rosuvastatin 10 MG Tab PO SCH (20:33)
[2023-06-30] MEDS: Latanoprost 0.005% Ophth Soln 2.5 ML Bottle EYEBOTH SCH (20:37)
[2023-07-01] MEDS: Insulin Lispro 100 Unit/ML 3 ML KwikPen SUBCUT SCH ×4 (07:37→20:15)
[2023-07-01] MEDS: Metoprolol Succinate 50 MG Tab.ER PO SCH (08:13)
[2023-07-01] MEDS: Apixaban 5 MG Tab PO SCH ×2 (08:13→20:04)
[2023-07-01] MEDS: amLODIPine 5 MG Tab PO SCH (08:13)
[2023-07-01] MEDS: Docusate Sodium 100 MG Cap PO SCH ×2 (08:13→20:04)
[2023-07-01] MEDS: Furosemide 80 MG Tab PO SCH (08:14)
[2023-07-01] MEDS: Dorzolamide/Timolol 2%-0.5% Ophth Soln 10 ML Bottle EYEBOTH SCH ×2 (08:14→20:03)
[2023-07-01] MEDS: Diltiazem 120 MG Cap.CD PO SCH ×2 (08:14→20:03)
[2023-07-01] MEDS: Polyethylene Glycol 3350 Powder 17 GM Packet PO SCH (08:14)
[2023-07-01] MEDS: Nystatin Topical Powder 15 GM Bottle TOP PRN ×2 (08:26→20:03)
[2023-07-01] MEDS: guaiFENesin/Dextromethorphan 100-10 MG/5 ML Soln 5 ML Cup PO PRN ×2 (10:55→20:02)
[2023-07-01] MEDS: Latanoprost 0.005% Ophth Soln 2.5 ML Bottle EYEBOTH SCH (20:02)
[2023-07-01] MEDS: traZODone 50 MG Tab PO PRN (20:03)
[2023-07-01] MEDS: Rosuvastatin 10 MG Tab PO SCH (20:04)
[2023-07-02] MEDS: Insulin Lispro 100 Unit/ML 3 ML KwikPen SUBCUT SCH ×4 (07:29→22:05)
[2023-07-02] MEDS: Docusate Sodium 100 MG Cap PO SCH ×2 (08:08→21:58)
[2023-07-02] MEDS: Polyethylene Glycol 3350 Powder 17 GM Packet PO SCH (08:08)
[2023-07-02] MEDS: amLODIPine 5 MG Tab PO SCH (08:08)
[2023-07-02] MEDS: Furosemide 80 MG Tab PO SCH (08:08)
[2023-07-02] MEDS: Diltiazem 120 MG Cap.CD PO SCH ×2 (08:08→21:58)
[2023-07-02] MEDS: Metoprolol Succinate 50 MG Tab.ER PO SCH (08:09)
[2023-07-02] MEDS: Apixaban 5 MG Tab PO SCH ×2 (08:09→21:58)
[2023-07-02] MEDS: Dorzolamide/Timolol 2%-0.5% Ophth Soln 10 ML Bottle EYEBOTH SCH ×2 (08:14→21:58)
[2023-07-02] MEDS: Acetaminophen 325 MG Tab PO PRN (16:36)
[2023-07-02] MEDS: Rosuvastatin 10 MG Tab PO SCH (21:58)
[2023-07-02] MEDS: Latanoprost 0.005% Ophth Soln 2.5 ML Bottle EYEBOTH SCH (21:58)
[2023-07-02] MEDS: traZODone 50 MG Tab PO PRN (21:58)
[2023-07-02] MEDS: Nystatin Topical Powder 15 GM Bottle TOP PRN (22:01)
[2023-07-03] MEDS: Acetaminophen 325 MG Tab PO PRN (04:33)
[2023-07-03] MEDS: Insulin Lispro 100 Unit/ML 3 ML KwikPen SUBCUT SCH ×3 (07:02→18:59)
[2023-07-03] MEDS: Polyethylene Glycol 3350 Powder 17 GM Packet PO SCH (08:47)
[2023-07-03] MEDS: Dorzolamide/Timolol 2%-0.5% Ophth Soln 10 ML Bottle EYEBOTH SCH ×2 (08:47→21:09)
[2023-07-03] MEDS: Fluticasone NASAL Spray 16 GM Bottle NASBOTH SCH (08:47)
[2023-07-03] MEDS: Nystatin Topical Powder 15 GM Bottle TOP PRN (08:48)
[2023-07-03] MEDS: amLODIPine 5 MG Tab PO SCH (08:49)
[2023-07-03] MEDS: Diltiazem 120 MG Cap.CD PO SCH ×2 (08:49→21:06)
[2023-07-03] MEDS: Apixaban 5 MG Tab PO SCH ×2 (08:50→21:08)
[2023-07-03] MEDS: Metoprolol Succinate 50 MG Tab.ER PO SCH (08:50)
[2023-07-03] MEDS: Furosemide 80 MG Tab PO SCH (08:50)
[2023-07-03] MEDS: Docusate Sodium 100 MG Cap PO SCH ×2 (08:50→21:08)
[2023-07-03] MEDS: Rosuvastatin 10 MG Tab PO SCH (21:08)
[2023-07-03] MEDS: Latanoprost 0.005% Ophth Soln 2.5 ML Bottle EYEBOTH SCH (21:09)
[2023-07-03] MEDS: traZODone 50 MG Tab PO PRN (21:41)
[2023-07-04] MEDS: Insulin Lispro 100 Unit/ML 3 ML KwikPen SUBCUT SCH ×3 (03:12→12:52)
[2023-07-04] MEDS: Acetaminophen 325 MG Tab PO PRN (05:58)
[2023-07-04] MEDS: Fluticasone NASAL Spray 16 GM Bottle NASBOTH SCH (08:05)
[2023-07-04] MEDS: Polyethylene Glycol 3350 Powder 17 GM Packet PO SCH (08:05)
[2023-07-04] MEDS: Dorzolamide/Timolol 2%-0.5% Ophth Soln 10 ML Bottle EYEBOTH SCH (08:06)
[2023-07-04] MEDS: Apixaban 5 MG Tab PO SCH (08:07)
[2023-07-04] MEDS: Diltiazem 120 MG Cap.CD PO SCH (08:07)
[2023-07-04] MEDS: amLODIPine 5 MG Tab PO SCH (08:07)
[2023-07-04] MEDS: Furosemide 80 MG Tab PO SCH (08:08)
[2023-07-04] MEDS: Docusate Sodium 100 MG Cap PO SCH (08:08)
[2023-07-04] MEDS: Metoprolol Succinate 50 MG Tab.ER PO SCH (08:10)
[2023-07-04] MEDS: Nystatin Topical Powder 15 GM Bottle TOP PRN (12:19)
[2023-07-04 12:54] VITALS: BP 127/89; PULSE 63
== END 2023-07-04 15:10 | disposition home or self-care (01) | DRG 603 ==
LOC: JD.ED 01:04 → JD.MS 14:40 → JD.ICU 06-21 15:45 → JD.MS 06-29 10:56
PROVIDERS: ADMIT Emergency Medicine; ATTEND Internal Medicine
DX: L03.116 Cellulitis of left lower limb (principal); E66.2 Morbid (severe) obesity with alveolar hypoventilation; Z68.44 Body mass index [BMI] 60.0-69.9, adult; I50.32 Chronic diastolic (congestive) heart failure; N50.89 Other specified disorders of the male genital organs; H40.9 Unspecified glaucoma; Z74.1 Need for assistance with personal care; K40.90 Unilateral inguinal hernia, without obstruction or gangrene, not specified as recurrent; I48.91 Unspecified atrial fibrillation; L03.115 Cellulitis of right lower limb; I11.0 Hypertensive heart disease with heart failure; G89.29 Other chronic pain; M54.9 Dorsalgia, unspecified; Z98.49 Cataract extraction status, unspecified eye; Z98.890 Other specified postprocedural states; Z88.0 Allergy status to penicillin; Z87.891 Personal history of nicotine dependence; E11.65 Type 2 diabetes mellitus with hyperglycemia; I10 Essential (primary) hypertension; E66.01 Morbid (severe) obesity due to excess calories; Z79.84 Long term (current) use of oral hypoglycemic drugs; Z79.899 Other long term (current) drug therapy
CPT/HCPCS: 36415; 80048; 80053; 80061; 82947; 83036; 83735; 83880; 84443; 85025; 86140; 93005; 93010; 93307; 94760; 94761; 94762; 97110-GP; 97116-GP; 97162-GP; 97530-GP; 99231; 99232; 99233; 99239; 99284; 99285; A9270-GY; J0696; J1650; J1940; J3475; J3490

== ENCOUNTER 2023-11-15 17:40 | Emergency (ER) | payer MEDICARE, MEDICAID ==
[2023-11-15 18:15] LABS: BASOPHILS ABSOLUTE AUTO 0.1 K/mm3 (0.0-0.2); BASOPHILS PERCENT AUTO 0.8 % (0.0-1.0); EOSINOPHILS PERCENT AUTO 0.3 % (0.0-6.0); HEMATOCRIT 44.2 % (42.0-52.0); HEMOGLOBIN 14.7 gm/dl (14.0-18.0); IMMATURE GRAN ABSOLUTE AUTO 0.04 K/mm3 (0.00-0.05); IMMATURE GRAN PERCENT AUTO 0.4 % (0.0-0.4); LYMPHOCYTES ABSOLUTE AUTO 1.9 K/mm3 (1.0-4.8); LYMPHOCYTES PERCENT AUTO 17.1 % (24.0-44.0); MEAN CORPUSCULAR HEMOGLOBIN 26.2 pg (28.0-32.0); MEAN CORPUSCULAR HGB CONC 33.3 g/dl (32.0-36.0); MEAN CORPUSCULAR VOLUME 78.8 fl (83.0-99.0); MEAN PLATELET VOLUME 10.8 fl (9.4-12.4); MONOCYTES ABSOLUTE AUTO 0.6 K/mm3 (0.0-0.8); MONOCYTES PERCENT AUTO 5.3 % (0.0-8.0); NEUTROPHILS ABSOLUTE AUTO 8.4 K/mm3 (1.8-7.7); NEUTROPHILS PERCENT AUTO 76.1 % (41.0-71.0); PLATELET COUNT,PLT 328 K/mm3 (150-400); RED BLOOD CELL COUNT 5.61 M/mm3 (4.52-5.90); WHITE BLOOD CELL COUNT,WBC 11.08 K/mm3 (3.9-11.3)
[2023-11-15] MEDS: Sodium Chloride 0.9% 10 ML Syringe FLUSH PRN (18:18)
[2023-11-15] MEDS: Ondansetron 4 MG/2 ML SDV IVPUSH ONE (18:19)
[2023-11-15] MEDS: Sodium Chloride 0.9% 1,000 ML IV SCH ×3 (18:21→21:52)
[2023-11-15 18:39] LABS: A/G RATIO 0.9 (1-2); ALBUMIN 3.4 g/dl (3.4-5.0); ANION GAP 25.7 (5-15); BILIRUBIN TOTAL 0.4 mg/dL (0.2-1.0); BUN/CREATININE RATIO 6.4 (14-18); CALCIUM 8.5 mg/dL (8.5-10.1); EST CRCL DRUG DOSING (CG) 5.64 mL/min; POTASSIUM,K 3.7 mEq/L (3.5-5.1); PROTEIN TOTAL,TP 7.4 g/dl (6.4-8.2)
[2023-11-15 18:58] LABS: BASE EXCESS VENOUS -8.1 (-4.0-2.0); BICARBONATE,VENOUS 16.5 meq/L (22-26); O2 SATURATION VENOUS 56.2; PCO2 VENOUS 32.3 mmHg (41-51); PH,VENOUS 7.33 (7.30-7.40)
[2023-11-15] MEDS: Potassium Chloride 20 MEQ Tab.ER PO ONE (20:33)
[2023-11-15] MEDS: Magnesium Oxide 400 MG Tab PO ONE (20:33)
[2023-11-15 20:37] LABS: CORONAVIRUS COVID-19 NAA NEGATIVE (NEGATIVE); INFLUENZA A NAA NEGATIVE (NEGATIVE)
[2023-11-16] MEDS: Ondansetron 4 MG/2 ML SDV IVPUSH ONE (00:12)
[2023-11-16] MEDS ORDERED: Naloxone 0.4 MG/ML SDV IVPUSH PRN (02:08)
[2023-11-16] MEDS: Prochlorperazine 10 MG/2 ML SDV IVPUSH ONE (02:22)
[2023-11-16] MEDS: Morphine 4 MG/ML Syringe IVPUSH ONE (02:22)
[2023-11-16 05:30] VITALS: PULSE 64
[2023-11-16 05:38] LABS: ANION GAP 21.7 (5-15); BUN/CREATININE RATIO 6.6 (14-18); CALCIUM 7.8 mg/dL (8.5-10.1); CREATININE 10.8 mg/dL (0.7-1.3); EST CRCL DRUG DOSING (CG) 5.74 mL/min; POTASSIUM,K 3.7 mEq/L (3.5-5.1)
[2023-11-16] MEDS ORDERED: Sodium Chloride 0.9% 1,000 ML IV SCH (07:00)
[2023-11-16 15:59] VITALS: BP 113/57
== END 2023-11-16 09:35 ==
LOC: JD.ED 17:40
DX: R19.7 Diarrhea, unspecified (principal); E86.0 Dehydration; N17.9 Acute kidney failure, unspecified; N18.5 Chronic kidney disease, stage 5; Z99.2 Dependence on renal dialysis; M94.0 Chondrocostal junction syndrome [Tietze]; E66.2 Morbid (severe) obesity with alveolar hypoventilation; E11.65 Type 2 diabetes mellitus with hyperglycemia; E87.20 Acidosis, unspecified; I10 Essential (primary) hypertension; E78.00 Pure hypercholesterolemia, unspecified; Z88.0 Allergy status to penicillin; Z79.84 Long term (current) use of oral hypoglycemic drugs; Z79.2 Long term (current) use of antibiotics; Z79.899 Other long term (current) drug therapy; Z68.44 Body mass index [BMI] 60.0-69.9, adult
CPT/HCPCS: 0240U; 36415; 80048; 80053; 82550; 82803; 83605; 83735; 84484; 85025; 93005; 96361; 96365; 96366; 96375; 96376; 99285; C1758; J0780; J2270; J2405; J3475; J3490; J7030; 93010

== ENCOUNTER 2024-11-19 19:20 | Emergency (ER) | payer MEDICARE, MEDICAID ==
[2024-11-19 20:07] LABS: BASOPHILS ABSOLUTE AUTO 0.1 K/mm3 (0.0-0.2); BASOPHILS PERCENT AUTO 0.6 % (0.0-1.0); EOSINOPHILS ABSOLUTE AUTO 0.2 K/mm3 (0.0-0.4); EOSINOPHILS PERCENT AUTO 1.6 % (0.0-6.0); HEMATOCRIT 39.5 % (42.0-52.0); HEMOGLOBIN 12.1 gm/dl (14.0-18.0); IMMATURE GRAN ABSOLUTE AUTO 0.03 K/mm3 (0.00-0.05); IMMATURE GRAN PERCENT AUTO 0.3 % (0.0-0.4); LYMPHOCYTES ABSOLUTE AUTO 1.3 K/mm3 (1.0-4.8); LYMPHOCYTES PERCENT AUTO 12.6 % (24.0-44.0); MEAN CORPUSCULAR HEMOGLOBIN 24.9 pg (28.0-32.0); MEAN CORPUSCULAR HGB CONC 30.6 g/dl (32.0-36.0); MEAN CORPUSCULAR VOLUME 81.4 fl (83.0-99.0); MEAN PLATELET VOLUME 10.3 fl (9.4-12.4); MONOCYTES ABSOLUTE AUTO 0.6 K/mm3 (0.0-0.8); MONOCYTES PERCENT AUTO 6.2 % (0.0-8.0); NEUTROPHILS PERCENT AUTO 78.7 % (41.0-71.0); PLATELET COUNT,PLT 226 K/mm3 (150-400); RED BLOOD CELL COUNT 4.85 M/mm3 (4.52-5.90); WHITE BLOOD CELL COUNT,WBC 10.15 K/mm3 (3.9-11.3)
[2024-11-19] MEDS: Cefepime 2 GM Vial IVPUSH ONE (20:10)
[2024-11-19] MEDS: VANCOmycin 2 GM/400 ML 2 GM in Premix Bag 1 BAG IV ONE (20:11)
[2024-11-19] MEDS: Sodium Chloride 0.9% 500 ML IV ONE (20:11)
[2024-11-19] MEDS: metroNIDAZOLE/Normal Saline 500 MG in Premix Bag 1 BAG IV ONE (20:11)
[2024-11-19] MEDS: Sodium Chloride 0.9% 10 ML Syringe FLUSH PRN (20:18)
[2024-11-19 20:40] LABS: LACTIC ACID 1.6 mmol/L (0.4-2.0)
[2024-11-19 20:46] LABS: A/G RATIO 0.9 (1-2); ALBUMIN 3.4 g/dl (3.4-5.0); ANION GAP 13.8 (5-15); BILIRUBIN TOTAL 0.5 mg/dL (0.2-1.0); BUN/CREATININE RATIO 14.5 (14-18); C-REACTIVE PROTEIN 2.36 mg/dL (<0.30); CALCIUM 8.8 mg/dL (8.5-10.1); CREATININE 1.1 mg/dL (0.7-1.3); EST CRCL DRUG DOSING (CG) 55.58 mL/min; MAGNESIUM 1.7 mg/dL (1.8-2.4)
[2024-11-19 20:55] LABS: POTASSIUM,K 3.8 mEq/L (3.5-5.1)
[2024-11-19] MEDS: Iopamidol 612 MG/ML 100 ML Bottle IVPUSH ONE (20:55)
[2024-11-19 23:49] LABS: APPEARANCE,URINE CLEAR (Clear); BILIRUBIN,URINE NEGATIVE (Negative); COLOR,URINE YELLOW (Yellow); GLUCOSE,URINE NEGATIVE (Negative); KETONES,URINE NEGATIVE (Negative); LEUKOCYTE ESTERASE,URINE NEGATIVE (Negative); NITRITE,URINE NEGATIVE (Negative); OCCULT BLOOD,URINE NEGATIVE (Negative); PROTEIN,URINE NEGATIVE (Negative); UROBILINOGEN,URINE 0.2 (0.2-1.0)
[2024-11-19 23:55] VITALS: BP 137/71; PULSE 111
== END 2024-11-20 00:25 ==
LOC: JD.ED 19:20
DX: N49.2 Inflammatory disorders of scrotum (principal); I48.91 Unspecified atrial fibrillation; R79.89 Other specified abnormal findings of blood chemistry; I10 Essential (primary) hypertension; E78.00 Pure hypercholesterolemia, unspecified; E11.9 Type 2 diabetes mellitus without complications; Z88.0 Allergy status to penicillin; Z79.01 Long term (current) use of anticoagulants; Z79.899 Other long term (current) drug therapy; Z79.84 Long term (current) use of oral hypoglycemic drugs
CPT/HCPCS: 36415; 71045; 74177; 80053; 81003; 83605; 83735; 83880; 84484; 85025; 85652; 86140; 87040; 87428; 93005; 96365; 96366; 96367; 96375; 99285; J0692; J1836; J3372; J7030; Q9967; 93010

== ENCOUNTER 2025-05-15 17:47 | Emergency (ER) | payer MEDICARE, MEDICAID ==
[2025-05-15] MEDS ORDERED: Sodium Chloride 0.9% 10 ML Syringe FLUSH PRN (17:51)
[2025-05-15 18:20] LABS: BASOPHILS ABSOLUTE AUTO 0.1 K/mm3 (0.0-0.2); BASOPHILS PERCENT AUTO 0.6 % (0.0-1.0); EOSINOPHILS ABSOLUTE AUTO 0.1 K/mm3 (0.0-0.4); EOSINOPHILS PERCENT AUTO 0.4 % (0.0-6.0); IMMATURE GRAN ABSOLUTE AUTO 0.04 K/mm3 (0.00-0.05); IMMATURE GRAN PERCENT AUTO 0.4 % (0.0-0.4); LYMPHOCYTES ABSOLUTE AUTO 1.2 K/mm3 (1.0-4.8); LYMPHOCYTES PERCENT AUTO 10.3 % (24.0-44.0); MEAN PLATELET VOLUME 9.8 fl (9.4-12.4); MONOCYTES ABSOLUTE AUTO 0.7 K/mm3 (0.0-0.8); MONOCYTES PERCENT AUTO 6.0 % (0.0-8.0); NEUTROPHILS ABSOLUTE AUTO 9.3 K/mm3 (1.8-7.7); NEUTROPHILS PERCENT AUTO 82.3 % (41.0-71.0); NRBC ABSOLUTE 0.00 (0.00-0.02); NRBC PERCENT 0.0 % (0.0-0.2); PLATELET COUNT,PLT 310 K/mm3 (150-400); RED BLOOD CELL COUNT 4.83 M/mm3 (4.52-5.90); WHITE BLOOD CELL COUNT,WBC 11.24 K/mm3 (3.9-11.3)
[2025-05-15 18:44] LABS: INR 1.37
[2025-05-15] MEDS: Nystatin Topical Powder 15 GM Bottle TOP ONE (18:44)
[2025-05-15 18:45] LABS: A/G RATIO 0.9 (1-2); ALANINE AMINOTRANSFERASE,ALT 18.0 U/L (16-63); ASPARTATE AMNIOTRANSFERASE,AST 28.0 U/L (15-37); BILIRUBIN TOTAL 1.0 mg/dL (0.2-1.0); BLOOD UREA NITROGEN,BUN 18.0 mg/dL (7-18); CARBON DIOXIDE,CO2 28.0 mEq/L (21-32); CHLORIDE,CL 103.0 mEq/L (98-107); CREATINE KINASE,CK 135.0 U/L (39-308); CREATININE 1.5 mg/dL (0.7-1.3); ESTIMATED GFR 49.0 mL/min (>60); GLUCOSE RANDOM 120.0 mg/dL (70-99); POTASSIUM,K 3.7 mEq/L (3.5-5.1); PROTEIN TOTAL,TP 6.4 g/dl (6.4-8.2); SODIUM,NA 142.0 mEq/L (136-145)
[2025-05-15 18:59] LABS: EST CRCL DRUG DOSING (CG) 40.76 mL/min
[2025-05-15 19:02] LABS: LACTIC ACID 2.7 mmol/L (0.4-2.0)
[2025-05-15 19:06] LABS: PTT,PARTIAL THROMBOPLSTIN TIME 28.0 SECONDS (21.7-31.4)
[2025-05-15] MEDS: Iopamidol 612 MG/ML 100 ML Bottle IVPUSH ONE (22:56)
[2025-05-16] MEDS: Bumetanide 1 MG/4 ML MDV IVPUSH ONE (02:50)
[2025-05-16] MEDS: Levofloxacin/Dextrose 5%-Water 750 MG in Premix Bag 1 BAG IV ONE (02:50)
[2025-05-16 04:07] LABS: APPEARANCE,URINE CLEAR (Clear); GLUCOSE,URINE NEGATIVE (Negative); OCCULT BLOOD,URINE NEGATIVE (Negative)
[2025-05-16 04:30] LABS: EPITHELIAL CELLS,URINE 0-5 /hpf (0-5)
[2025-05-16 04:31] LABS: FINE GRANULAR CASTS,URINE 0-5 /lpf (0-5)
[2025-05-16 06:44] VITALS: BP 148/65; PULSE 79
== END 2025-05-16 09:59 | disposition home or self-care (01) ==
LOC: JD.ED 17:47
DX: J96.20 Acute and chronic respiratory failure, unspecified whether with hypoxia or hypercapnia (principal); I11.0 Hypertensive heart disease with heart failure; I50.9 Heart failure, unspecified; E11.9 Type 2 diabetes mellitus without complications; E78.5 Hyperlipidemia, unspecified; I48.91 Unspecified atrial fibrillation; E78.00 Pure hypercholesterolemia, unspecified; N49.2 Inflammatory disorders of scrotum; L03.115 Cellulitis of right lower limb; L03.116 Cellulitis of left lower limb; Z88.0 Allergy status to penicillin; Z79.01 Long term (current) use of anticoagulants; Z79.84 Long term (current) use of oral hypoglycemic drugs; Z79.899 Other long term (current) drug therapy
CPT/HCPCS: 36415; 71045; 74177; 80053; 80162; 81001; 82550; 83605; 83735; 83880; 84484; 85025; 85610; 85730; 86140; 87040; 93005; 96361; 96365; 96366; 96375; 99285; A9270; J1956; J3490; J7030; Q9967; 93010; 99284

== ENCOUNTER 2025-05-17 13:11 | Emergency (ER) | payer MEDICARE, MEDICAID ==
[2025-05-17] MEDS ORDERED: Sodium Chloride 0.9% 10 ML Syringe FLUSH PRN (13:40)
[2025-05-17 14:57] LABS: MEAN PLATELET VOLUME 9.4 fl (9.4-12.4); NRBC ABSOLUTE 0.00 (0.00-0.02); NRBC PERCENT 0.0 % (0.0-0.2); PLATELET COUNT,PLT 266 K/mm3 (150-400); RED BLOOD CELL COUNT 4.90 M/mm3 (4.52-5.90); WHITE BLOOD CELL COUNT,WBC 8.32 K/mm3 (3.9-11.3)
[2025-05-17 15:05] VITALS: BP 121/85; PULSE 111
[2025-05-17 15:26] LABS: INR 1.26; LACTIC ACID 1.0 mmol/L (0.4-2.0)
[2025-05-17 15:33] LABS: A/G RATIO 0.8 (1-2); ALANINE AMINOTRANSFERASE,ALT 17.0 U/L (16-63); ASPARTATE AMNIOTRANSFERASE,AST 22.0 U/L (15-37); BILIRUBIN TOTAL 0.7 mg/dL (0.2-1.0); BLOOD UREA NITROGEN,BUN 15.0 mg/dL (7-18); CARBON DIOXIDE,CO2 33.0 mEq/L (21-32); CHLORIDE,CL 104.0 mEq/L (98-107); CREATININE 1.1 mg/dL (0.7-1.3); EST CRCL DRUG DOSING (CG) 60.7 mL/min; ESTIMATED GFR 71.0 mL/min (>60); GLUCOSE RANDOM 117.0 mg/dL (70-99); POTASSIUM,K 4.2 mEq/L (3.5-5.1); PROTEIN TOTAL,TP 6.6 g/dl (6.4-8.2); SODIUM,NA 142.0 mEq/L (136-145)
[2025-05-17 16:23] LABS: BAND PERCENT MAN 0 % (0-10); BASOPHILS PERCENT MAN 0 (0.2-1.2); EOSINOPHILS PERCENT MAN 1 % (0.8-7.0); LYMPHOCYTES % ATYPICAL MANUAL 0 %; LYMPHOCYTES PERCENT MAN 14 % (20-40); MONOCYTES PERCENT MAN 7 % (2-10)
[2025-05-17 16:27] LABS: PLATELET COUNT ESTIMATE ADEQUATE
== END 2025-05-17 20:15 | disposition home or self-care (01) ==
LOC: JD.ED 13:11
DX: N49.2 Inflammatory disorders of scrotum (principal); I11.0 Hypertensive heart disease with heart failure; I50.89 Other heart failure; I48.91 Unspecified atrial fibrillation; E78.00 Pure hypercholesterolemia, unspecified; E11.9 Type 2 diabetes mellitus without complications; Z88.0 Allergy status to penicillin; Z79.899 Other long term (current) drug therapy; Z79.01 Long term (current) use of anticoagulants; Z79.84 Long term (current) use of oral hypoglycemic drugs
CPT/HCPCS: 36415; 80053; 83605; 83880; 85007; 85027; 85610; 86140; 87040; 93005; 93010; 99284; 99285